=== PATIENT | female | born 1965 | race Caucasian/White ===

== ENCOUNTER 2016-11-11 10:51 | Emergency (ER) | payer SELFPAY ==
[~2016-11-11 10:51] MED LIST: AUGMENTIN 875-1 EAC2 PO; COMPLETE MULTI1 EAC2; DAPTOMYCIN500 MG IV; FOLIC ACID1 M1; FOLIC ACID1 M1 PO; LEVAQUIN500 M1 PO; LEVAQUIN750 M1 PO; MULTIVITAMINS1 EAC6 PO; NO HOME MEDICATION XX; NORCO 5/325 TAB1 TAB PO; OMNICEF300 MG PO; THIAMINE HCL100 M2 PO; TYLENOL325 M2 PO; ULTRAM50 M1 PO; VITAMIN B-1250 MC1
[2016-11-11 12:37] LABS: URINE BILIRUBIN NEGATIVE (NEG); URINE BLOOD SMALL (NEG); URINE GLUCOSE (UA) NEGATIVE (NEG); URINE KETONE NEGATIVE (NEG); URINE LEUKOCYTE ESTERASE POSITIVE (NEG); URINE NITRITE NEGATIVE (NEG); URINE PH 6.5 (5.0-8.0); URINE PROTEIN NEGATIVE (NEG)
[2016-11-11 12:41] LABS: URINE APPEARANCE CLEAR; URINE COLOR PALE YELLOW; URINE SPECIFIC GRAVITY 1.006 (1.003-1.030)
[2016-11-11 12:50] LABS: URINE BACTERIA 1+; URINE RBC RARE /[HPF] (0-5)
[2016-11-11 13:37] LABS: BASO % 0.7 % (0-2); EOS % 2.8 % (0-7); EOSINOPHIL ABSOLUTE COUNT 0.1 tho/cmm (0.0-0.7); HCT-HEMATOCRIT 36.7 % (34.0-49.0); HGB-HEMOGLOBIN 12.2 gm/dl (12.0-15.5); LYMPH % 61.8 % (20-45); LYMPH ABSOLUTE COUNT 1.8 tho/cmm (0.8-4.5); MCH (MEAN CORPUSCULAR HGB) 30.7 pg (28.0-32.0); MCHC MEAN CORPUSCULAR HGB CONC 33.2 % (32.0-36.0); MCV (MEAN CELL VOLUME) 92.4 fl (82.0-96.0); MEAN PLATELET VOLUME 9.4 cmc (9.4-12.4); MONO % 6.3 % (0-12); MONOCYTE ABSOLUTE COUNT 0.2 tho/cmm (0.0-1.2); NEUTROPHIL ABSOLUTE COUNT 0.8 tho/cmm (1.6-8.0); NEUTROPHIL-AUTOMATED 0.8 tho/cmm (1.6-8.0); NEUTROPHILS % 28.4 % (40-80); PLATELET COUNT 261 tho/cmm (150-450); RED BLOOD COUNT 3.97 mil/cmm (4.00-5.20); RED CELL DISTRIBUTION WIDTH 15.5 % (12.4-16.4); WHITE BLOOD COUNT 2.9 tho/cmm (4.0-10.0)
[2016-11-11 13:53] LABS: ALB/GLOB RATIO 0.8 (0.8-2.0); ALBUMIN 3.7 g/dl (3.5-5.0); ALKALINE PHOSPHATASE 77 U/L (33-138); ALT/SGPT 24 U/L (12-78); ANION GAP 13 mmol/L (0-20); AST/SGOT 33 U/L (10-40); BILIRUBIN,TOTAL 0.1 mg/dl (0-1.5); BLOOD UREA NITROGEN 5 mg/dl (6-24); CALCIUM 8.1 mg/dl (8.5-10.5); CARBON DIOXIDE-VENOUS 28 mmol/L (22-32); CHLORIDE 106 mmol/l (96-110); CREATININE 0.48 mg/dl (0.50-1.10); GLUCOSE 90 mg/dL (70-110); POTASSIUM 3.8 mmol/L (3.7-5.1); SODIUM 143 mmol/L (135-145); eGFR VALUE FOR BLACK >90 mL/Min
[2016-11-11 13:57] LABS: ALCOHOL (ETOH) 322 mg/dl (<10)
[2016-11-11] MEDS ORDERED: MOBIC7.5 M2 PO (14:15)
== END 2016-11-11 15:07 ==
LOC: EDMED 10:51
PROVIDERS: Emergency Medicine
DX: F10.129 Alcohol abuse with intoxication, unspecified (principal); R55 Syncope and collapse; Y90.8 Blood alcohol level of 240 mg/100 ml or more; M25.511 Pain in right shoulder; M25.571 Pain in right ankle and joints of right foot; G89.29 Other chronic pain; I10 Essential (primary) hypertension; Z90.89 Acquired absence of other organs; Z98.890 Other specified postprocedural states; F17.200 Nicotine dependence, unspecified, uncomplicated
CPT/HCPCS: G0480; J7030